=== PATIENT | male | born 1950 | race Caucasian/White ===

== ENCOUNTER 2023-04-22 18:46 | Emergency (ER) | payer SELFPAY | END 2023-04-22 19:49 | disposition left against medical advice (07) | LOC: EMS 18:47 | DX: Z53.21 Procedure and treatment not carried out due to patient leaving prior to being seen by health care provider (principal) ==

== ENCOUNTER 2023-04-26 00:44 | Emergency (ER) | payer MEDICARE, OTHER | END 2023-04-26 00:45 | disposition left against medical advice (07) | LOC: EMS 00:45 | DX: Z53.21 Procedure and treatment not carried out due to patient leaving prior to being seen by health care provider (principal) ==

== ENCOUNTER 2023-11-25 11:39 | Emergency (ER) | payer MEDICARE, OTHER ==
[~2023-11-25] VITALS: Ht 160 cm; Wt 68.2 kg
[~2023-11-25 11:39] MED LIST: FINA-27 PO; LEVO-72 PO
[2023-11-25 11:55] VITALS: TEMP 98
[2023-11-25 13:58] VITALS: BP 134/57; PULSE 62; RESP 18
== END 2023-11-25 14:15 | disposition home or self-care (01) ==
LOC: EMS 12:43
DX: T83.031A Leakage of indwelling urethral catheter, initial encounter (principal); X58.XXXA Exposure to other specified factors, initial encounter
CPT/HCPCS: 99282; Z7502

== ENCOUNTER 2023-12-28 16:28 | Emergency (ER) | payer MEDICARE, OTHER ==
[~2023-12-28] VITALS: Ht 175.3 cm; Wt 63.6 kg
[~2023-12-28 16:28] MED LIST changes: -LEVO-72 PO
[2023-12-28 16:34] VITALS: BP 116/64; PULSE 73; RESP 18; TEMP 98.2
== END 2023-12-28 17:30 | disposition home or self-care (01) ==
LOC: EMS 17:09
DX: T83.091A Other mechanical complication of indwelling urethral catheter, initial encounter (principal); Y92.89 Other specified places as the place of occurrence of the external cause
CPT/HCPCS: 99281; Z7502

== ENCOUNTER 2024-03-16 12:01 | Emergency (ER) | payer MEDICARE, OTHER ==
[~2024-03-16] VITALS: Ht 175.3 cm; Wt 75.0 kg
[2024-03-16 12:05] VITALS: BP 143/98; PULSE 86; RESP 18; TEMP 98.2
== END 2024-03-16 12:51 | disposition left against medical advice (07) ==
LOC: EMS 12:01
DX: T83.091A Other mechanical complication of indwelling urethral catheter, initial encounter (principal); Y84.6 Urinary catheterization as the cause of abnormal reaction of the patient, or of later complication, without mention of misadventure at the time of the procedure
CPT/HCPCS: 99281; Z7502